=== PATIENT | female | born 1980 | race African-American/Black ===

== ENCOUNTER 2018-04-26 13:14 | Outpatient (CLI) | payer OTHER | END 2018-04-26 13:15 | disposition home or self-care (01) | LOC: DTY/OP 13:14 | PROVIDERS: ATTEND Surgery | DX: E66.01 Morbid (severe) obesity due to excess calories (principal) | CPT/HCPCS: 97802 ==

== ENCOUNTER 2018-05-28 12:49 | Outpatient (CLI) | payer OTHER | END 2018-05-28 12:50 | disposition home or self-care (01) | LOC: DTY/OP 12:49 | PROVIDERS: ATTEND Surgery | DX: E66.01 Morbid (severe) obesity due to excess calories (principal) | CPT/HCPCS: 97802 ==

== ENCOUNTER 2018-06-26 14:15 | Outpatient (CLI) | payer OTHER | END 2018-06-26 14:16 | disposition home or self-care (01) | LOC: DTY/OP 14:15 | PROVIDERS: ATTEND Family Medicine | DX: E66.01 Morbid (severe) obesity due to excess calories (principal) | CPT/HCPCS: 97802 ==

== ENCOUNTER 2018-07-26 13:35 | Outpatient (CLI) | payer OTHER | END 2018-07-26 13:36 | disposition home or self-care (01) | LOC: DTY/OP 13:35 | PROVIDERS: ATTEND Family Medicine | DX: E66.01 Morbid (severe) obesity due to excess calories (principal) | CPT/HCPCS: 97802 ==

== ENCOUNTER 2018-10-02 09:00 | Inpatient (IN) | payer OTHER ==
[2018-10-15] MEDS ORDERED: Fentanyl 100 MCG/2 ML VIAL ONE ×2 (06:47→08:59)
[2018-10-15] MEDS ORDERED: Fentanyl 250 MCG/5 ML VIAL ONE (06:47)
[2018-10-15] MEDS ORDERED: Famotidine/PF 20 mg/2ml Vial ONE (06:48)
[2018-10-15] MEDS ORDERED: Bupivacaine/Epinephrine 0.25% 30 ML VIAL ONE (07:00)
[2018-10-15] MEDS ORDERED: Midazolam HCl 2 mg/2 ml Vial ONE (07:12)
[2018-10-15] MEDS ORDERED: Heparin 5,000 UNITS/ML VIAL ONE (07:12)
[2018-10-15] MEDS ORDERED: SUGAMMADEX SODIUM 500 MG/5 ML VIAL ONE (07:33)
[2018-10-15] MEDS ORDERED: Ondansetron HCl/PF 4 MG/2 ML Vial IVP PRN (08:31)
[2018-10-15] MEDS ORDERED: Promethazine HCl 25 MG/ML VIAL SLOW IVP PRN (08:31)
[2018-10-15] MEDS ORDERED: Promethazine HCl 25 MG/ML VIAL IM PRN ×2 (08:31→08:34)
[2018-10-15] MEDS ORDERED: Meperidine HCl/PF 25 MG/ML VIAL SLOW IVP PRN (08:31)
[2018-10-15] MEDS ORDERED: diphenhydrAMINE 50 MG/ML VIAL IVP PRN (08:34)
[2018-10-15] MEDS ORDERED: Dextrose 50% Abboject 50 ML SYRINGE SLOW IVP PRN (08:34)
[2018-10-15] MEDS ORDERED: Hydrocodone-Acetamin 15 ML UDCUP PO PRN (08:34)
[2018-10-15] MEDS ORDERED: hydrALAZINE 20 MG/ML VIAL SLOW IVP PRN (08:34)
[2018-10-15] MEDS ORDERED: Ondansetron PF 4 MG/2 ML Vial IVP PRN ×2 (08:34→09:03)
[2018-10-15] MEDS ORDERED: Dextrose 5% in Water 1,000 ML IV PRN (08:34)
[2018-10-15] MEDS ORDERED: Promethazine HCl 25 MG/ML VIAL ONE (08:59)
[2018-10-15] MEDS ORDERED: Naloxone HCl 0.4 mg/ml Vial IV PRN (09:03)
[2018-10-15] MEDS ORDERED: diphenhydrAMINE 50 MG/ML VIAL IM PRN (09:03)
[2018-10-15] MEDS ORDERED: Morphine CADD 1 MG/ML CADD IVPB PRN (09:03)
[2018-10-15] MEDS ORDERED: diphenhydrAMINE 25 MG CAP PO PRN (09:03)
[2018-10-15] MEDS ORDERED: Communication Order-Pharmacy FS SCH (09:15)
[2018-10-15] MEDS ORDERED: Morphine Sulfate 100 MG in Dextrose 5% in Water 98 ML IV SCH (09:25)
[2018-10-15] MEDS ORDERED: Morphine CADD 100 ML IVPB SCH (09:30)
[2018-10-15] MEDS: D5 1/2 NS w/20 mEq KCL 1,000 ML IV SCH ×2 (11:42→16:32)
[2018-10-15] MEDS: Enoxaparin Sodium 40 MG/0.4 ML SYRINGE SC SCH (11:42)
[2018-10-15] MEDS: Ketorolac Tromethamine 30 MG/ML VIAL IVP SCH ×2 (12:15→17:55)
--- NOTE | 2018-10-15 12:18 | OP ---
DATE OF PROCEDURE: 10/15/2018 PREOPERATIVE DIAGNOSIS: Morbid obesity. PROCEDURES PERFORMED: Laparoscopic sleeve gastrectomy with intraoperative esophagogastroscopy. INDICATIONS: A 38-year-old female, morbidly obese, who has attempted multiple weight loss programs without success. FINDINGS: 38-Setswana bougie used. DESCRIPTION OF PROCEDURE: After informed consent was obtained, the patient was taken to the operating room and given general endotracheal anesthesia. She was placed in the supine position. Her abdomen was prepped and draped in usual fashion. Local anesthesia was infiltrated subcutaneously and deep, and a 12 mm incision was performed approximately 8 inches below xiphoid slightly to the left. A Veress needle was inserted and drop test was performed. Pneumoperitoneum was created to a volume of 2 L of carbon dioxide. Utilizing a bladeless 12 mm trocar and 0-degree laparoscope, direct visual entry in the abdominal cavity was performed. Pneumoperitoneum was then created to a pressure of 15 mmHg and the patient placed in steep reverse Trendelenburg position. Cherry liver retractor inserted. Left lobe of liver retracted superiorly. Pylorus was identified. A 12 mm port was placed on the right beneath it and two 12s were placed left subcostal. The omentum was taken off the greater curvature 5 cm from pylorus utilizing the LigaSure. Short gastrics divided with LigaSure. Left crura defined with the LigaSure. A 38-Setswana bougie was inserted, directed into the antrum. The linear 60 mm green load stapler was used to divide the antrum to the bougie, gold load along the bougie, and a series of blues through the angle of His. Intraoperative endoscopy was performed. The videoendoscope inserted under direct vision and advanced into the sleeve. The staple line inspected. There was no bleeding. Staple line then tested by inflating the new stomach with pressurized air and water, there was no air leak. Stomach decompressed. Scope removed. The remnant of stomach was removed from the abdomen through the left lateral port site. The fascia was closed with 0 Vicryl suture and the GraNee needle. Trocars and retractors were removed. The skin was closed with interrupted 4-0 Rapide. Dermabond was applied. The patient tolerated the procedure well and transferred to Recovery in good condition. Sponge and needle count verified correct x2. Job ID: [id number]
[2018-10-15] MEDS ORDERED: Rocuronium Bromide 10 MG/ML (10ML VIAL) ONE (16:16)
[2018-10-15] MEDS ORDERED: PHENYLEPHRINE-NS 100 MCG/ML 10 ML SYRINGE ONE (16:16)
[2018-10-15] MEDS ORDERED: Lidocaine 1% PF 5 ML VIAL ONE (16:16)
[2018-10-15] MEDS ORDERED: Dexamethasone 20 MG/5 ML VIAL ONE (16:16)
[2018-10-15] MEDS ORDERED: Metoclopramide HCl 10 MG/2 ML VIAL ONE (16:16)
[2018-10-15] MEDS ORDERED: Ondansetron PF 4 MG/2 ML Vial ONE (16:16)
[2018-10-15] MEDS ORDERED: PROPOFOL 200 MG/20 ML VIAL ONE (16:16)
[2018-10-15] MEDS ORDERED: Ketorolac Tromethamine 30 MG/ML VIAL ONE (16:16)
[2018-10-15] MEDS: CEFAZOLIN 2 GM in Premix Bag 1 BAG IVPB SCH (16:34)
[2018-10-16] MEDS: D5 1/2 NS w/20 mEq KCL 1,000 ML IV SCH ×3 (01:09→17:15)
[2018-10-16] MEDS: Ketorolac Tromethamine 30 MG/ML VIAL IVP SCH ×5 (01:09→22:40)
[2018-10-16] MEDS: CEFAZOLIN 2 GM in Premix Bag 1 BAG IVPB SCH (01:09)
[2018-10-16 06:07] LABS: #Lymphocytes 1.7 thou/uL (1.20-3.40); #Monocytes 1.3 thou/uL (0.11-0.59); #Neutrophils 12.8 thou/uL (1.40-6.50); %Eosinophils 0.1 % (0.0-10.0); %Lymphocytes 10.7 % (21.0-51.0); %Monocytes 8.4 % (0.0-10.0); %Neutrophils 80.8 % (42.0-75.0); Hemoglobin 9.8 g/dL (12.0-16.0); Mean Corpuscular HGB CONC 30.7 g/dL (32.0-36.0); Mean Corpuscular Hemoglobin 25.6 pg (27.0-31.0); Mean Corpuscular Volume 83.3 fL (78.0-98.0); Mean Platelet Volume 8.3 fL (7.4-10.4); Platelet Count 317 thou/uL (130-400); RBC Distribution Width 12.1 % (11.5-14.5); Red Blood Cell (RBC) Count 3.82 mill/uL (4.20-5.40); White Blood Cell (WBC) Count 15.8 thou/uL (4.8-10.8)
[2018-10-16 06:27] LABS: Anion Gap 9 mmol/L (10-20); BUN (Urea Nitrogen) 8 mg/dL (7.0-18.7); Calc. Creatinine Clearance 4 mL/min (70-130); Carbon Dioxide 28 mmol/L (22-29); Chloride 103 mmol/L (98-107); Estimated GFR-MDRD Greater than 90; Glucose 112 mg/dL (70-105); Potassium 3.9 mmol/L (3.5-5.1); Sodium 136 mmol/L (136-145)
--- NOTE | 2018-10-16 08:55 | RAD ---
XR UGI Single Contrast No Air HISTORY: Post gastric sleeve procedure. COMPARISON: None. FINDINGS: Patient ingested 15 mL of Gastrografin without difficulty. There is some mild hang-up withi n the esophagus but at approximately 5 minutes the contrast passed into the stomach without signs of extravasation. IMPRESSION: Unremarkable postgastric sleeve procedure. No extravasation.
[2018-10-16] MEDS: Enoxaparin Sodium 40 MG/0.4 ML SYRINGE SC SCH (09:23)
[2018-10-16] MEDS: Pantoprazole 40 MG VIAL IVP SCH (09:23)
[2018-10-16] MEDS: Hydrocodone-Acetamin 15 ML UDCUP PO PRN ×3 (11:11→21:44)
[2018-10-16] MEDS ORDERED: GASTROGRAFIN 30 ML BOT ONE (14:04)
--- NOTE | 2018-10-16 15:30 | DIS ---
DATE OF ADMISSION: 10/15/2018 DATE OF DISCHARGE: 10/16/2018 DISCHARGE DIAGNOSIS: Morbid obesity. PROCEDURES DURING ADMISSION: Laparoscopic sleeve gastrectomy, intraoperative esophagogastroscopy, and postoperative Gastrografin swallow. HOSPITAL COURSE: The patient was admitted, taken to the operating room, where she underwent sleeve gastrectomy. Postoperatively, she has done well. She is tolerating liquids well. Pain is controlled on p.o. medications. Discharged home on hydrocodone and Zofran. Follow up with me in 2 weeks. Job ID: [id number]
[2018-10-17] MEDS: D5 1/2 NS w/20 mEq KCL 1,000 ML IV SCH ×2 (00:16→09:23)
[2018-10-17] MEDS: Ketorolac Tromethamine 30 MG/ML VIAL IVP SCH (06:30)
[2018-10-17] MEDS: Hydrocodone-Acetamin 15 ML UDCUP PO PRN ×2 (06:31→10:40)
[2018-10-17 07:22] VITALS: BP 123/76; TEMP 98.2
[2018-10-17] MEDS: Enoxaparin Sodium 40 MG/0.4 ML SYRINGE SC SCH (09:27)
--- NOTE | 2018-10-17 12:49 | DIS ---
DATE OF ADMISSION: 10/15/2018 DATE OF DISCHARGE: 10/17/2018 The patient was discharged yesterday, but she after discharge, told the nurse she did not feel comfortable going home that she was afraid to go home. She is feeling a lot better now. She does not have an IV. She is tolerating liquids. Her pain is controlled on p.o. medications. She is discharged home on hydrocodone and Zofran. She will follow up with me in 2 weeks. Job ID: [id number]
[2018-10-17] MEDS: Pantoprazole 40 MG VIAL IVP SCH (14:18)
== END 2018-10-17 10:45 | disposition home or self-care (01) | DRG 621 ==
LOC: SURG A 10-15 06:42
PROVIDERS: ADMIT Surgery; ATTEND Surgery
PROC: 0DB64Z3 Excision of Stomach, Percutaneous Endoscopic Approach, Vertical (ICD-10-PCS; principal; 2018-10-15)
DX: E66.01 Morbid (severe) obesity due to excess calories (principal); I10 Essential (primary) hypertension; J45.909 Unspecified asthma, uncomplicated; F41.9 Anxiety disorder, unspecified; Z79.899 Other long term (current) drug therapy; Z68.44 Body mass index [BMI] 60.0-69.9, adult
CPT/HCPCS: 36415; 74241; 80048; 85025; 88307; 88312; 94760; C9113; J0131; J0690; J1100; J1200; J1644; J1650; J1885; J2001; J2250; J2274; J2405; J2550; J2704; J2765; J3010; J7070; Q9963; S0028

== ENCOUNTER 2018-10-02 11:38 | Outpatient (CLI) | payer OTHER ==
[2018-10-02 14:40] LABS: #Basophils 0.1 thou/uL (0.0-0.2); #Eosinphils 0.2 thou/uL (0.0-0.7); #Lymphocytes 2.1 thou/uL (1.20-3.40); #Monocytes 0.5 thou/uL (0.11-0.59); #Neutrophils 4.3 thou/uL (1.40-6.50); %Basophils 1.1 % (0.0-1.0); %Eosinophils 2.9 % (0.0-10.0); %Lymphocytes 29.6 % (21.0-51.0); %Monocytes 6.7 % (0.0-10.0); %Neutrophils 59.7 % (42.0-75.0); Hemoglobin 10.9 g/dL (12.0-16.0); Mean Corpuscular HGB CONC 31.9 g/dL (32.0-36.0); Mean Corpuscular Hemoglobin 26.8 pg (27.0-31.0); Mean Platelet Volume 8.8 fL (7.4-10.4); Platelet Count 305 thou/uL (130-400); RBC Distribution Width 12.4 % (11.5-14.5); Red Blood Cell (RBC) Count 4.07 mill/uL (4.20-5.40); White Blood Cell (WBC) Count 7.3 thou/uL (4.8-10.8)
[2018-10-02 14:48] LABS: Hemoglobin A1c 4.8 % (4.0-6.0)
[2018-10-02 15:07] LABS: ALT (SGPT) 14 U/L (8-55); AST (SGOT) 14 U/L (5-34); Albumin 3.9 g/dL (3.5-5.0); Alkaline Phosphatase 109 U/L (40-150); Bilirubin, Direct 0.1 mg/dL (0.1-0.3); Bilirubin, Total 0.4 mg/dL (0.2-1.2); Protein, Total 7.1 g/dL (6.0-8.3)
[2018-10-02 15:08] LABS: ALT (SGPT) 12 U/L (8-55); AST (SGOT) 14 U/L (5-34); Albumin 3.8 g/dL (3.5-5.0); Alkaline Phosphatase 107 U/L (40-150); Anion Gap 13 mmol/L (10-20); BUN (Urea Nitrogen) 16 mg/dL (7.0-18.7); Bilirubin, Total 0.4 mg/dL (0.2-1.2); Calc. Creatinine Clearance 0 mL/min (70-130); Calcium 9.6 mg/dL (7.8-10.44); Carbon Dioxide 26 mmol/L (22-29); Chloride 104 mmol/L (98-107); Estimated GFR-MDRD Greater than 90; Globulin 3.2 g/dL (2.4-3.5); Glucose 76 mg/dL (70-105); Sodium 139 mmol/L (136-145)
== END 2018-10-02 11:39 | disposition home or self-care (01) ==
LOC: LABBT 11:38
PROVIDERS: ATTEND Surgery
DX: Z01.818 Encounter for other preprocedural examination (principal)
CPT/HCPCS: 80053; 83036; 85025; 93005; 93010

== ENCOUNTER 2019-01-25 10:28 | Outpatient (CLI) | payer OTHER ==
--- NOTE | 2019-01-25 14:57 | NM ---
HEPATOBILIARY SCAN: HISTORY:Abdominal pain. Right upper quadrant pain. Gastric sleeve surgery in October 2018 RADIOPHARMACEUTICAL: 5.3 mCi Technetium 99m Mebrofenin injected intravenously FINDINGS: There is normal tracer extraction by the liver with normal excretion into the biliary tracts and smal l bowel loops and normal filling of the gallbladder. The calculated gallbladder ejection fraction following an oral fatty meal measures 76%. IMPRESSION:Normal exam.
== END 2019-01-25 10:29 | disposition home or self-care (01) ==
LOC: NM 10:28
PROVIDERS: ATTEND Surgery
DX: R10.11 Right upper quadrant pain (principal)
CPT/HCPCS: 78227; A9537

== ENCOUNTER 2022-06-01 00:46 | Observation (INO) | payer SELFPAY ==
[2022-06-01 03:29] VITALS: BMI 34.4
[2022-06-01] MEDS ORDERED: Lorazepam 2 MG/ML VIAL IM PRN (07:48)
[2022-06-01] MEDS ORDERED: Lorazepam 1 MG TAB PO PRN (07:48)
[2022-06-01] MEDS ORDERED: Ondansetron ODT 4 MG TAB PO PRN (07:48)
[2022-06-01] MEDS ORDERED: Ferrous Sulfate 325 MG TAB PO SCH (08:00)
[2022-06-01] MEDS ORDERED: Thiamine HCl 200 MG/2 ML VIAL SLOW IVP SCH (08:00)
[2022-06-01] MEDS ORDERED: Multivit, Therapeutic 1 TAB PO SCH (09:00)
[2022-06-01] MEDS ORDERED: Non-Formulary Item 1 EACH (Ferrous Sulfate [Ferrous Sulfate] 325 MG Tablet) PO SCH (09:00)
[2022-06-01] MEDS ORDERED: Aspirin Chewable 81 MG TAB PO SCH (09:00)
[2022-06-01] MEDS ORDERED: Folic Acid 1 MG TAB PO SCH (09:00)
[2022-06-01] MEDS ORDERED: Regadenoson 0.4 MG/5 ML SYRINGE ONE (09:14)
[2022-06-01] MEDS ORDERED: Acetaminophen 325 MG TAB PO PRN (14:08)
[2022-06-01 16:10] VITALS: BP 129/64; TEMP 98.4
[2022-06-01] MEDS ORDERED: Atorvastatin Calcium 40 MG TAB PO SCH (21:00)
[2022-06-02] MEDS ORDERED: Lorazepam 1 MG TAB PO PRN (07:48)
[2022-06-02] MEDS ORDERED: Ferrous Sulfate 325 MG TAB PO SCH (09:00)
[2022-06-03] MEDS ORDERED: Lorazepam 1 MG TAB PO PRN (07:48)
[2022-06-04] MEDS ORDERED: Lorazepam 0.5 MG TAB PO PRN (07:48)
[2022-06-04] MEDS ORDERED: Thiamine 100 MG TAB PO SCH (08:00)
== END 2022-06-01 17:15 | disposition home or self-care (01) ==
LOC: 2SW 00:46
PROVIDERS: ADMIT Internal Medicine; ATTEND Internal Medicine
DX: R07.89 Other chest pain (principal); G43.909 Migraine, unspecified, not intractable, without status migrainosus; I10 Essential (primary) hypertension; F17.290 Nicotine dependence, other tobacco product, uncomplicated; Z98.84 Bariatric surgery status; Z20.822 Contact with and (suspected) exposure to COVID-19
CPT/HCPCS: 78452; 93017; 96372; 96374; A9500; G0378; J1650; J2785; J3411; U0003; U0005

== ENCOUNTER 2023-03-09 19:39 | Observation (INO) | payer OTHER ==
[2023-03-09] MEDS ORDERED: hydrALAZINE 20 MG/ML VIAL SLOW IVP PRN (23:26)
[2023-03-09] MEDS ORDERED: Labetalol HCl 100 MG/20 ML VIAL SLOW IVP PRN (23:26)
[2023-03-10 00:12] VITALS: BMI 35.4
[2023-03-10 01:49] LABS: Troponin I Less than 0.010 ng/mL (< 0.028)
[2023-03-10 04:21] LABS: #Basophils 0.1 thou/uL (0.0-0.2); #Eosinphils 0.2 thou/uL (0.0-0.7); #Monocytes 0.4 thou/uL (0.11-0.59); #Neutrophils 1.8 thou/uL (1.40-6.50); %Basophils 1.2 % (0.0-1.0); %Eosinophils 3.5 % (0.0-10.0); %Lymphocytes 45.2 % (21.0-51.0); %Neutrophils 41.1 % (42.0-75.0); Hemoglobin 9.2 g/dL (12.0-16.0); Mean Corpuscular HGB CONC 31.7 g/dL (32.0-36.0); Mean Corpuscular Hemoglobin 27.9 pg (27.0-31.0); Mean Corpuscular Volume 87.9 fl (78.0-98.0); Mean Platelet Volume 10.6 fL (7.4-10.4); Platelet Count 241 10x3/uL (130-400); RBC Distribution Width 13.1 % (11.5-14.5); White Blood Cell (WBC) Count 4.3 10x3/uL (4.8-10.8)
[2023-03-10 04:49] LABS: Anion Gap 11 mmol/L (10-20); BUN (Urea Nitrogen) 15 mg/dL (7.0-18.7); Calc. Creatinine Clearance 144 mL/min (70-130); Calcium 8.2 mg/dL (7.8-10.44); Carbon Dioxide 25 mmol/L (22-29); Cardiac Risk 2.3 (Less than 4.5); Chloride 107 mmol/L (98-107); Cholesterol 146 mg/dl (< 200 Desired); Estimated GFR 98; Glucose 83 mg/dL (70-105); HDL Cholesterol 63 mg/dL (>60 Neg Risk); LDL Cholesterol, Calculated 77 mg/dL; Potassium 3.5 mmol/L (3.5-5.1); Sodium 139 mmol/L (136-145); Triglycerides 29 mg/dL (Less than 150)
[2023-03-10] MEDS: Acetaminophen 325 MG TAB PO PRN (05:33)
[2023-03-10] MEDS ORDERED: hydrOXYzine 25 MG TAB PO SCH (15:45)
[2023-03-10] MEDS: Ondansetron PF 4 MG/2 ML Vial IVP PRN (20:39)
[2023-03-10] MEDS: Fioricet 325/50/40 mg Tablet PO PRN (23:43)
[2023-03-11] MEDS: Ondansetron PF 4 MG/2 ML Vial IVP PRN (04:33)
[2023-03-11] MEDS: Acetaminophen 325 MG TAB PO PRN (04:33)
[2023-03-11] MEDS ORDERED: Iron Polysaccharides Complex 150 MG CAP PO SCH (08:00)
[2023-03-11] MEDS: Fioricet 325/50/40 mg Tablet PO PRN (09:53)
[2023-03-11 11:45] VITALS: BP 122/75; TEMP 98.2
== END 2023-03-11 14:07 | disposition home or self-care (01) ==
LOC: 2SE 19:39
PROVIDERS: ADMIT Internal Medicine; ATTEND Internal Medicine
DX: R07.89 Other chest pain (principal); F41.9 Anxiety disorder, unspecified; R42 Dizziness and giddiness; G93.41 Metabolic encephalopathy; D64.9 Anemia, unspecified; I07.1 Rheumatic tricuspid insufficiency; I12.0 Hypertensive chronic kidney disease with stage 5 chronic kidney disease or end stage renal disease; N18.6 End stage renal disease; E78.5 Hyperlipidemia, unspecified; I16.0 Hypertensive urgency; E87.6 Hypokalemia; G43.909 Migraine, unspecified, not intractable, without status migrainosus; Z79.899 Other long term (current) drug therapy; Z90.710 Acquired absence of both cervix and uterus; Z98.84 Bariatric surgery status
CPT/HCPCS: 36415; 70551; 80048; 80061; 82728; 84484; 85025; 93306; 93880; 96374; 96376; G0378; J2405

== ENCOUNTER 2023-12-20 14:51 | Observation (INO) | payer BC ==
[2023-12-20 15:39] VITALS: BMI 36.6
[2023-12-20] MEDS ORDERED: Lorazepam 0.5 MG TAB PO SCH (15:45)
[2023-12-20] MEDS ORDERED: hydrALAZINE 20 MG/ML VIAL SLOW IVP PRN (15:51)
[2023-12-20] MEDS: HYDROcodone/Acetaminophen 5/325 mg Tablet PO SCH (16:03)
[2023-12-20] MEDS: Thiamine 100 MG TAB PO SCH (20:53)
[2023-12-20] MEDS: traMADol HCl 50 MG TAB PO PRN (20:54)
[2023-12-20] MEDS: Heparin 5,000 UNITS/ML VIAL SC SCH (20:55)
[2023-12-20] MEDS: Cholecalciferol 1,000 UNITS (25 MCG) TAB PO SCH (20:55)
[2023-12-20] MEDS: Cyanocobalamin (Vitamin B-12) 1,000 MCG TAB PO SCH (20:55)
[2023-12-20] MEDS: Multivit, Therapeutic 1 TAB PO SCH (20:55)
[2023-12-20] MEDS: Folic Acid 1 MG TAB PO SCH (20:55)
[2023-12-20] MEDS: Atorvastatin Calcium 40 MG TAB PO SCH (20:55)
[2023-12-21 04:55] LABS: #Basophils 0.05 10x3/uL (0.0-0.2); %Basophils 0.8 % (0.0-1.0); %Eosinophils 2.4 % (0.0-10.0); %Lymphocytes 32.1 % (21.0-51.0); %Monocytes 9.1 % (0.0-10.0); %Neutrophils 55.3 % (42.0-75.0); Hematocrit 29.4 % (36.0-47.0); Hemoglobin 9.3 g/dL (12.0-16.0); Mean Corpuscular HGB CONC 31.6 g/dL (32.0-36.0); Mean Corpuscular Hemoglobin 28.3 pg (27.0-31.0); Mean Corpuscular Volume 89.4 fL (78.0-98.0); Platelet Count 255 10x3/uL (130-400); RBC Distribution Width 13.2 % (11.5-14.5); Red Blood Cell (RBC) Count 3.29 mill/uL (4.20-5.40)
[2023-12-21 05:04] LABS: Anion Gap 10 mmol/L (10-20); BUN (Urea Nitrogen) 17 mg/dL (7.0-18.7); Calc. Creatinine Clearance 127 mL/min (70-130); Calcium 8.2 mg/dL (7.8-10.44); Carbon Dioxide 25 mmol/L (22-29); Cardiac Risk 2.6 (Less than 4.5); Chloride 108 mmol/L (98-107); Cholesterol 144 mg/dl (< 200 Desired); Estimated GFR 82; Glucose 92 mg/dL (70-105); HDL Cholesterol 55 mg/dL (>60 Neg Risk); LDL Cholesterol, Calculated 74 mg/dL; Potassium 3.6 mmol/L (3.5-5.1); Sodium 139 mmol/L (136-145); Triglycerides 73 mg/dL (Less than 150)
[2023-12-21] MEDS: traMADol HCl 50 MG TAB PO PRN (05:26)
[2023-12-21] MEDS: Acetaminophen 325 MG TAB PO PRN (09:22)
[2023-12-21] MEDS: Senokot S 8.6-50 MG TAB PO PRN (09:22)
[2023-12-21] MEDS: Aspirin 81 mg Enteric Coated Tablet PO SCH (09:23)
[2023-12-21] MEDS: Ondansetron PF 4 MG/2 ML Vial IVP PRN (11:43)
[2023-12-21] MEDS: Meclizine HCl 25 MG TAB PO PRN (11:43)
[2023-12-21] MEDS ORDERED: Magnevist 469MG/ML 20 ML VIAL ONE ×3 (12:30)
[2023-12-21] MEDS: Gabapentin 100 MG CAP PO SCH (15:11)
[2023-12-22 11:45] VITALS: BP 149/88; TEMP 98
== END 2023-12-22 13:02 | disposition home or self-care (01) ==
LOC: INTOOBSV 14:51 → 2SE 14:51
PROVIDERS: ADMIT Internal Medicine; ATTEND Internal Medicine
DX: R53.1 Weakness (principal); M50.30 Other cervical disc degeneration, unspecified cervical region; I12.9 Hypertensive chronic kidney disease with stage 1 through stage 4 chronic kidney disease, or unspecified chronic kidney disease; N18.30 Chronic kidney disease, stage 3 unspecified; D64.9 Anemia, unspecified; G43.909 Migraine, unspecified, not intractable, without status migrainosus; E66.9 Obesity, unspecified; Z68.36 Body mass index [BMI] 36.0-36.9, adult; Z98.84 Bariatric surgery status; Z79.899 Other long term (current) drug therapy; R20.2 Paresthesia of skin
CPT/HCPCS: 36415; 70553; 72156; 72158; 76376; 80048; 80061; 85025; 93306; 96372; 96374; A9579; G0378; J1644; J2405

== ENCOUNTER 2025-02-08 20:49 | Inpatient (IN) | payer BC ==
[2025-02-08 22:21] VITALS: BMI 34.4
[2025-02-09 06:20] LABS: #Basophils Less than 0.03 10x3/uL (0.0-0.2); #Eosinophils Less than 0.03 10x3/uL (0.0-0.7); #Monocytes 0.07 10x3/uL (0.11-0.59); #Neutrophils 5.54 10x3/uL (1.40-6.50); %Basophils 0.2 % (0.0-1.0); %Eosinophils 0.0 % (0.0-10.0); %Lymphocytes 11.6 % (21.0-51.0); %Monocytes 1.1 % (0.0-10.0); %Neutrophils 86.6 % (42.0-75.0); Hematocrit 32.7 % (36.0-47.0); Hemoglobin 10.6 g/dL (12.0-16.0); Mean Corpuscular Hemoglobin 27.5 pg (27.0-31.0); Mean Corpuscular Volume 84.7 fL (78.0-98.0); Platelet Count 266 10x3/uL (130-400); Red Blood Cell (RBC) Count 3.86 mill/uL (4.20-5.40); White Blood Cell (WBC) Count 6.39 10x3/uL (4.8-10.8)
[2025-02-09 06:38] LABS: Anion Gap 11 mmol/L (10-20); BUN (Urea Nitrogen) 12 mg/dL (7.0-18.7); Calc. Creatinine Clearance 157 mL/min (70-130); Calcium 8.7 mg/dL (7.8-10.44); Carbon Dioxide 20 mmol/L (22-29); Cardiac Risk 2.4 (Less than 4.5); Chloride 111 mmol/L (98-107); Cholesterol 158 mg/dl (< 200 Desired); Glucose 132 mg/dL (70-105); HDL Cholesterol 66 mg/dL (>60 Neg Risk); LDL Cholesterol, Calculated 88 mg/dL; Magnesium 2.3 mg/dL (1.6-2.6); Potassium 3.9 mmol/L (3.5-5.1); Sodium 138 mmol/L (136-145); Triglycerides 22 mg/dL (Less than 150)
[2025-02-09] MEDS: Folic Acid 1 MG TAB PO SCH (08:49)
[2025-02-09] MEDS: Aspirin 81 mg Enteric Coated Tablet PO SCH (08:49)
[2025-02-09] MEDS: Pantoprazole 40 MG DR.TAB PO SCH (08:49)
[2025-02-09] MEDS: Acetaminophen 325 MG TAB PO PRN (12:11)
[2025-02-09] MEDS: Ondansetron PF 4 MG/2 ML Vial IVP PRN (12:12)
[2025-02-10 06:52] LABS: #Basophils 0.04 10x3/uL (0.0-0.2); #Eosinophils 0.10 10x3/uL (0.0-0.7); #Monocytes 0.41 10x3/uL (0.11-0.59); #Neutrophils 3.44 10x3/uL (1.40-6.50); %Basophils 0.7 % (0.0-1.0); %Eosinophils 1.7 % (0.0-10.0); %Lymphocytes 33.9 % (21.0-51.0); %Monocytes 6.8 % (0.0-10.0); %Neutrophils 56.7 % (42.0-75.0); Hematocrit 30.0 % (36.0-47.0); Hemoglobin 9.2 g/dL (12.0-16.0); Mean Corpuscular Hemoglobin 27.0 pg (27.0-31.0); Mean Corpuscular Volume 88.0 fL (78.0-98.0); Platelet Count 245 10x3/uL (130-400); Red Blood Cell (RBC) Count 3.41 mill/uL (4.20-5.40); White Blood Cell (WBC) Count 6.05 10x3/uL (4.8-10.8)
[2025-02-10 07:09] LABS: Anion Gap 11 mmol/L (10-20); BUN (Urea Nitrogen) 21 mg/dL (7.0-18.7); Calc. Creatinine Clearance 102 mL/min (70-130); Calcium 8.1 mg/dL (7.8-10.44); Carbon Dioxide 21 mmol/L (22-29); Chloride 112 mmol/L (98-107); Glucose 87 mg/dL (70-105); Magnesium 2.0 mg/dL (1.6-2.6); Potassium 3.6 mmol/L (3.5-5.1); Sodium 140 mmol/L (136-145)
[2025-02-10] MEDS: Gabapentin 100 MG CAP PO SCH (20:47)
[2025-02-11 11:54] VITALS: BP 112/78; TEMP 98.2
[2025-02-11] MEDS: FLU (Fluarix Triv) 25-26 (6MOS UP)/PF 45 MCG/0.5 ML Syringe IM ONE (13:16)
== END 2025-02-11 17:28 | disposition home or self-care (01) | DRG 103 ==
LOC: OBS 21:48 → OBSVTOIN 02-10 11:23
PROVIDERS: ADMIT Internal Medicine; ATTEND Internal Medicine
DX: G93.2 Benign intracranial hypertension (principal); R20.0 Anesthesia of skin; E78.5 Hyperlipidemia, unspecified; K21.9 Gastro-esophageal reflux disease without esophagitis; D64.9 Anemia, unspecified; F41.9 Anxiety disorder, unspecified; F32.A Depression, unspecified; G43.909 Migraine, unspecified, not intractable, without status migrainosus; G62.9 Polyneuropathy, unspecified; M47.892 Other spondylosis, cervical region; E66.9 Obesity, unspecified; Z98.51 Tubal ligation status; Z90.710 Acquired absence of both cervix and uterus; Z98.84 Bariatric surgery status; M47.812 Spondylosis without myelopathy or radiculopathy, cervical region; I10 Essential (primary) hypertension; Z68.34 Body mass index [BMI] 34.0-34.9, adult; Z23 Encounter for immunization
CPT/HCPCS: 36415; 70450; 70551; 80048; 80061; 83735; 84443; 84484; 85025; 90656; 96374; G0378; J2405